=== PATIENT | female | born 1955 | race Caucasian/White ===

== ENCOUNTER 2023-01-20 07:10 | Day surgery (SDC) | payer MEDICARE ==
[2023-01-19 10:19] VITALS: BMI 21.1
[~2023-01-20 07:10] MED LIST: EPINEPHrine 0.3 MG in Ophthalmic Irrigation Solution 500 ML IRR SCH; FENTANYL 50 MCG/ML 1 ML VIAL ONE; Midazolam HCl 2 mg/2 ml Vial ONE
[2023-01-20] MEDS ORDERED: Cyclopentolate 1% Opth Drop 2 ML BOT ONE (07:51)
[2023-01-20] MEDS ORDERED: Phenylephrine 2.5% Ophth Soln 5 ML BOT ONE (07:51)
[2023-01-20] MEDS ORDERED: PROPOFOL 200 MG/20 ML VIAL ONE (08:43)
[2023-01-20] MEDS ORDERED: CEFAZOLIN 1 GM VIAL ONE (08:43)
[2023-01-20] MEDS ORDERED: Triamcinolone 40 MG/ML VIAL ONE (08:43)
[2023-01-20] MEDS ORDERED: Maxitrol 0.1% Opth Oint 3.5 GM TUBE ONE (08:43)
[2023-01-20] MEDS ORDERED: Bupivacaine 0.75% 10 ML VIAL ONE (08:43)
[2023-01-20] MEDS ORDERED: Lidocaine 1% PF 5 ML VIAL ONE (08:43)
[2023-01-20] MEDS ORDERED: Lidocaine 4% PF 5 ML AMP ONE (08:43)
== END 2023-01-20 10:09 | disposition home or self-care (01) ==
LOC: SDC 07:10
PROVIDERS: ATTEND Ophthalmology Retina Specialist
PROC: 08T43ZZ Resection of Right Vitreous, Percutaneous Approach (ICD-10-PCS; principal; 2023-01-20)
PROC: 08NE3ZZ Release Right Retina, Percutaneous Approach (ICD-10-PCS; 2023-01-20)
DX: H43.11 Vitreous hemorrhage, right eye (principal); Z79.82 Long term (current) use of aspirin; Z79.899 Other long term (current) drug therapy; Z88.1 Allergy status to other antibiotic agents; Z88.2 Allergy status to sulfonamides; Z88.5 Allergy status to narcotic agent; Z88.8 Allergy status to other drugs, medicaments and biological substances; Z95.5 Presence of coronary angioplasty implant and graft
CPT/HCPCS: 67041; J3010; J0171; J0690; J2250; J2704; J3301; J3490

== ENCOUNTER 2023-02-14 13:53 | Outpatient (CLI) | payer MEDICARE | END 2023-02-14 13:54 | disposition home or self-care (01) | LOC: EEG 13:53 | PROVIDERS: ATTEND Psychiatry & Neurology Neurology | DX: R41.3 Other amnesia (principal) | CPT/HCPCS: 95816; 95957 ==